=== PATIENT | male | born 1985 | race Two or more races ===

== ENCOUNTER 2018-04-30 14:09 | Emergency (ER) | payer OTHER ==
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
[2018-04-30 16:35] VITALS: BP 114/78
== END 2018-04-30 16:28 | disposition home or self-care (01) ==
LOC: MW.ED 14:09
DX: J20.9 Acute bronchitis, unspecified (principal); J06.9 Acute upper respiratory infection, unspecified; Z88.0 Allergy status to penicillin
CPT/HCPCS: 87081; 87804; 87880-QW; 99282; 99283

== ENCOUNTER 2018-05-30 09:49 | Emergency (ER) | payer OTHER ==
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
[2018-05-30] MEDS ORDERED: Sodium Chloride 0.9% 1,000 ML IV ONE (09:55)
[2018-05-30] MEDS ORDERED: Morphine 2 MG/ML Syringe IVPUSH ONE (10:39)
--- NOTE | 2018-05-30 10:43 | CR ---
INDICATION: Chest pain. TECHNIQUE: AP portable chest x-ray. FINDINGS: Heart size normal. Shallow inspiration. No focal dense infiltrate or consolidation in either lung. Chest otherwise negative. Dictated by Aly Seymour MD @ May 30 2018 10:43AM Signed by Dr. Aly Seymour @ May 30 2018 10:43AM
[2018-05-30 10:48] LABS: CHLORIDE,CL 103 mmol/L (98-107); SODIUM,NA 138 mmol/L (136-148)
--- NOTE | 2018-05-30 11:36 | CR ---
INDICATION: Pain in the left anterior ribs from sternum choose side after falling on them 2 days ago. TECHNIQUE: Three views left ribs. COMPARISON: Chest x-ray earlier today. FINDINGS: No acute fractures involving left ribs. Heart size normal. Left lung clear. Remainder negative. Dictated by Aly Seymour MD @ May 30 2018 11:32AM Signed by Dr. Aly Seymour @ May 30 2018 11:34AM
[2018-05-30 12:12] VITALS: BP 103/68
== END 2018-05-30 12:12 | disposition home or self-care (01) ==
LOC: MW.ED 09:49
DX: S20.212A Contusion of left front wall of thorax, initial encounter (principal); W19.XXXA Unspecified fall, initial encounter; Y92.009 Unspecified place in unspecified non-institutional (private) residence as the place of occurrence of the external cause; Z88.0 Allergy status to penicillin
CPT/HCPCS: 36415; 71045; 71100; 80053; 81003; 84484; 85025; 93005; 96361; 96374; 99285; J2270; J7040

== ENCOUNTER 2018-09-16 14:20 | Emergency (ER) | payer BC, OTHER ==
[2018-09-16] MEDS ORDERED: Ondansetron 4 MG Tab.DIS PO ONE (14:40)
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
[2018-09-16 15:20] LABS: CHLORIDE,CL 105 mmol/L (98-107); SODIUM,NA 142 mmol/L (136-148)
--- NOTE | 2018-09-16 15:58 | CT ---
EXAMINATION: Non contrast CT head. Coronal and sagittal reformats. HISTORY: Headache FINDINGS: No evidence of intra or extra axial hemorrhage, mass, midline shift, hydrocephalus or edema. No hypoattenuation changes in the major vascular territories to suggest acute infarct. No abnormal intracranial calcifications are detected. No evidence of substantial vascular calcifications. Paranasal sinuses and mastoid air cells are well aerated without substantial findings. Pituitary fossa appears unremarkable. Orbits and globes are symmetric. Calvarium is intact. No evidence of skull fracture. IMPRESSION: No acute intracranial findings.
[2018-09-16 16:22] VITALS: BP 120/79
== END 2018-09-16 16:20 | disposition home or self-care (01) ==
LOC: MW.ED 14:20
DX: R51 Headache (principal); Z88.0 Allergy status to penicillin
CPT/HCPCS: 36415; 70450; 80053; 85025; 99284; A9270

== ENCOUNTER 2021-03-05 06:51 | Emergency (ER) | payer BC, OTHER ==
[2021-03-05] MEDS ORDERED: Ondansetron 4 MG/2 ML SDV IVPUSH ONE (07:08)
[2021-03-05] MEDS ORDERED: Dextrose 5%-Lactated Ringers 1,000 ML IV SCH (07:15)
[2021-03-05 07:53] LABS: CORONAVIRUS COVID-19 NAA NEGATIVE (NEGATIVE); INFLUENZA A NAA NEGATIVE (NEGATIVE); INFLUENZA B NAA NEGATIVE (NEGATIVE)
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
[2021-03-05 08:01] LABS: BLOOD UREA NITROGEN,BUN 14 mg/dL (7.0-18.0); CARBON DIOXIDE,CO2 25.7 mmol/L (21.0-32.0); CHLORIDE,CL 103 mmol/L (98-107); GLUCOSE RANDOM 118 mg/dL (74-106); LIPASE 143 U/L (73-393); POTASSIUM,K 4.3 mmol/L (3.5-5.1); SODIUM,NA 139 mmol/L (136-148)
[2021-03-05 09:57] VITALS: BP 117/80; PULSE 71
== END 2021-03-05 09:58 | disposition home or self-care (01) ==
LOC: MW.ED 06:51
DX: R11.2 Nausea with vomiting, unspecified (principal); R19.7 Diarrhea, unspecified; Z88.0 Allergy status to penicillin; Z20.822 Contact with and (suspected) exposure to COVID-19
CPT/HCPCS: 0240U; 36415; 80053; 83690; 85025; 96374; 99284; J2405; J7121